=== PATIENT | female | born 1950 | race Caucasian/White ===

== ENCOUNTER → 2016-08-22 | Outpatient (CLI) | payer OTHER ==
--- NOTE | 2016-08-22 10:41 | US ---
EXAMINATION TYPE: US abdomen complete DATE OF EXAM: 08/22/2016 7:32 AM COMPARISON: NONE CLINICAL HISTORY: I71.4 Abdominal Aortic Aneurysm. Patient stated calcification was seen on chiroprac tic back X Ray; diabetic EXAM MEASUREMENTS: Liver Length: 13.4 cm Gallbladder Wall: 0.2 cm CBD: 0.2 cm Spleen: 10.3 cm Right Kidney: 10.7 x 5.2 x 5.0 cm Left Kidney: 10.4 x 6.2 x 5.0 cm Pancreas: wnl Liver: fatty Gallbladder: wnl Evidence for sonographic Styles's sign: No CBD: wnl Spleen: parallel wall calcification upper pole suggests vessel wall calcification Right Kidney: multiple shadowing renal stones with largest at mid lower pole = 2.2 x 1.7 x 0.8cm Left Kidney: parallel wall calcification noted mid pole Upper IVC: wnl Abd Aorta: intimal wall changes noted mid and lower aorta IMPRESSION: 1. Renal calcifications without evidence of hydronephrosis. 2. Nonspecific pattern to the liver can be seen with fatty infiltration. Correlate for hepatocellular disease or hepatitis.
== END | disposition home or self-care (01) ==
LOC: RADUSWWP 06:49
PROVIDERS: ATTEND Internal Medicine
DX: N28.89 Other specified disorders of kidney and ureter (principal)
CPT/HCPCS: 76700

== ENCOUNTER → 2017-05-03 | Outpatient (CLI) | payer MEDICARE, OTHER ==
--- NOTE | 2017-05-06 11:42 | MM ---
Reason for exam: screening (asymptomatic). Last mammogram was performed 1 year and 10 months ago. History: Patient is postmenopausal. Family history of breast cancer in sister at age 58. Took estrogen for 6 months. Physical Findings: A clinical breast exam by your physician is recommended on an annual basis and results should be correlated with mammographic findings. MG 3D Screening Mammo W/Cad Bilateral CC and MLO view(s) were taken. Prior study comparison: July 12, 2015, bilateral MG screening mammo w CAD. January 19, 2014, bilateral MG screening mammo w CAD. The breast tissue is heterogeneously dense. This may lower the sensitivity of mammography. There is no discrete abnormality. No significant changes when compared with prior studies. ASSESSMENT: Negative, BI-RAD 1 RECOMMENDATION: Routine screening mammogram of both breasts in 1 year.
== END | disposition home or self-care (01) ==
LOC: RADMAMWWP 12:46
PROVIDERS: ATTEND Internal Medicine
DX: Z12.31 Encounter for screening mammogram for malignant neoplasm of breast (principal)
CPT/HCPCS: 77063; 77067

== ENCOUNTER → 2017-05-10 | Outpatient (CLI) | payer MEDICARE, OTHER ==
--- NOTE | 2017-05-10 15:03 | US ---
EXAMINATION TYPE: US kidneys/renal and bladder DATE OF EXAM: 05/10/2017 COMPARISON: Complete Abdominal US report 08-22-2016. CLINICAL HISTORY: N20.0 Calculus Of Kidney. gross hematuria this week that has turned to microscopic hematuria EXAM MEASUREMENTS: Right Kidney: 11.4 x 5.0 x 6.2cm Left Kidney: 10.8 x 5.0 x 4.4cm Right Kidney: severe hydronephrosis with inferior stone seen = 1.6cm Left Kidney: wnl Bladder: wnl Bilateral Jets seen: left only There is no evidence for hydronephrosis at this point in time. No nephrolithiasis is seen. No gwen s are identified. The urinary bladder is anechoic. Bilateral ureteral jets are seen. IMPRESSION: Severe right-sided hydronephrosis is now present. Suspect obstructing ureter calculus. Urology referr al and further workup advised. Technologist suspects obstructing 1.6 cm proximal ureter calculus.
== END | disposition home or self-care (01) ==
LOC: RADUSWWP 13:26
PROVIDERS: ATTEND Internal Medicine
DX: N13.30 Unspecified hydronephrosis (principal)
CPT/HCPCS: 76770

== ENCOUNTER → 2017-05-17 | Outpatient (CLI) | payer MEDICARE, OTHER ==
[2017-05-17 15:25] LABS: Blood Urea Nitrogen 15 mg/dL (7-17)
--- NOTE | 2017-05-18 02:00 | CT ---
EXAMINATION TYPE: CT abdomen pelvis w con DATE OF EXAM: 05/17/2017 COMPARISON: NONE HISTORY: Right sided renal stone CT DLP: 1186 mGycm Automated exposure control for dose reduction was used. TECHNIQUE: Helical acquisition of images was performed from the lung bases through the pelvis. CONTRAST: Performed with Oral Contrast and with IV Contrast, patient injected with 100 mL of Omnipaque 300. FINDINGS: Lung bases are clear of consolidation. There is mild subsegmental atelectasis at the posterior lung b ases. There is no pleural effusion. There is coronary artery calcification. Liver and spleen appear normal. Bile ducts are not dilated. There is no pancreatic mass. Gallbladder appears normal. There are multiple calculi in the right kidney to measure up to 1.2 cm. There is moderate right-sided hydronephrosis and hydroureter. There appears to be at least 2 large calculi in the lower right uret er. The largest measures 9 mm. Bladder distends smoothly. There is no free fluid in the pelvis. There is no evidence of a pelvic mass. There is no ascites. I see no intestinal wall thickening. There are no dilated loops. There is probably a 3 mm nonobstructing calculus in the left kidney. There is a 1 semiarid cortical cyst on the lateral right kidney. There is no retroperitoneal adenopathy. Abdominal aorta is atheromatous. There is spondylosis in the lumbar spine with L4-5 disc space narrowing.. IMPRESSION: MODERATELY SEVERE RIGHT-SIDED HYDRONEPHROSIS AND HYDROURETER. MULTIPLE RIGHT RENAL CALCULI. LARGE OBS TRUCTING CALCULI IN THE LOWER RIGHT URETER. ATHEROSCLEROTIC VASCULAR DISEASE. NORMAL APPENDIX.
== END | disposition home or self-care (01) ==
LOC: RADCTMAIN 14:40
PROVIDERS: ATTEND Urology
DX: N13.2 Hydronephrosis with renal and ureteral calculous obstruction (principal); N13.4 Hydroureter
CPT/HCPCS: 82565; 84520; 74177; 36415; Q9967

== ENCOUNTER → 2017-05-22 | Outpatient (CLI) | payer MEDICARE, OTHER ==
--- NOTE | 2017-05-22 13:12 | XR ---
EXAMINATION TYPE: XR KUB DATE OF EXAM: 05/22/2017 12:44 PM CLINICAL HISTORY: Bilateral kidney stones. TECHNIQUE: Two supine KUB images of the abdomen are obtained. COMPARISON: CT abdomen and pelvis 5 days ago. FINDINGS: There are 6-8 right-sided renal calculi mid to lower pole level with dominant 2.2 cm calcul us redemonstrated. There is redemonstration of 2 obstructing distal right ureter calculi measuring 5 to 8 mm in the right upper to mid pelvis. There are 2 smaller calculi left kidney. There is vascular calcification left upper quadrant and left pelvis. There is overall nonobstructive bowel gas pattern. Visualized osseous structures are intact. IMPRESSION: Right greater than left nephrolithiasis with obstructing distal ureter calculi redemonstr ated.
== END | disposition home or self-care (01) ==
LOC: RADXRMAIN 12:32
PROVIDERS: ATTEND Internal Medicine
DX: N20.2 Calculus of kidney with calculus of ureter (principal)
CPT/HCPCS: 74018

== ENCOUNTER → 2017-05-27 | Outpatient (CLI) | payer MEDICARE, OTHER ==
[2017-05-27 12:30] LABS: Anion Gap 13 mmol/L; Blood Urea Nitrogen 14 mg/dL (7-17); Calcium 10.4 mg/dL (8.4-10.2); Carbon Dioxide 29 mmol/L (22-30); Chloride 97 mmol/L (98-107); Glucose 212 mg/dL (74-99); Potassium 4.6 mmol/L (3.5-5.1); Sodium 139 mmol/L (137-145)
[2017-05-27 13:08] LABS: Basophils # (A) 0.1 k/uL (0-0.2); Basophils % (A) 1 %; Eosinophils # (A) 0.5 k/uL (0-0.7); Eosinophils % (A) 6 %; HCT 40.4 % (34.0-46.0); HGB 12.8 gm/dL (11.4-16.0); Lymphocytes # (A) 3.3 k/uL (1.0-4.8); Lymphocytes % (A) 37 %; MCH 30.4 pg (25.0-35.0); MCHC 31.7 g/dL (31.0-37.0); MCV 95.8 fL (80.0-100.0); Monocytes # (A) 0.7 k/uL (0-1.0); Monocytes % (A) 8 %; Neutrophils # (A) 4.1 k/uL (1.3-7.7); Neutrophils % (A) 47 %; Platelet Count 416 k/uL (150-450); RBC 4.21 m/uL (3.80-5.40); RDW 12.4 % (11.5-15.5); WBC 8.9 k/uL (3.8-10.6)
== END | disposition home or self-care (01) ==
LOC: LABPAT 11:41
PROVIDERS: ATTEND Physician Assistant
DX: Z01.812 Encounter for preprocedural laboratory examination (principal); N20.1 Calculus of ureter; Z79.899 Other long term (current) drug therapy
CPT/HCPCS: 36415; 80048; 85025

== ENCOUNTER → 2017-07-08 | Outpatient (CLI) | payer MEDICARE, OTHER ==
--- NOTE | 2017-07-08 11:51 | US ---
EXAMINATION TYPE: US kidneys/renal and bladder DATE OF EXAM: 07/08/2017 COMPARISON: CT abdomen and pelvis May 17, 2017, US May 10, 2017 CLINICAL HISTORY: N13.30 Hydonephrosis. EXAM MEASUREMENTS: Right Kidney: 11.6 x 5.0 x 4.2 cm Left Kidney: 11.4 x 5.5 x 5.2 cm Right Kidney: mild hydro, multiple tiny echogenic foci, large shadowing stone seen measuring 0.8 x 0 .5 x 0.8cm, upper pole cyst measuring 1.6 x 1.1. x 1.1cm Left Kidney: scattered echogenic foci Bladder: wnl Bilateral Jets seen: Yes Initial images are presumed all mislabeled left. There is mild hydronephrosis significantly improved from prior CT and ultrasound. Technologists identified shadowing calculus lower pole level, there are multiple calculi seen at this level on recent CT. Technologist bergeron simple appearing 1.1 cm cyst up per pole level right kidney. No hydronephrosis is seen in the left kidney. 2-3 tiny calculi measuring up to 3 mm in the left kidne y on CT are less well-seen on ultrasound IMPRESSION: Persistent mild right-sided hydronephrosis with significant improvement from recent CT and ultrasound where there were several obstructing distal ureter calculi present.
== END | disposition home or self-care (01) ==
LOC: RADUSWWP 09:39
PROVIDERS: ATTEND Urology
DX: N13.2 Hydronephrosis with renal and ureteral calculous obstruction (principal)
CPT/HCPCS: 76770

== ENCOUNTER → 2017-09-02 | Outpatient (CLI) | payer MEDICARE, OTHER ==
--- NOTE | 2017-09-02 09:43 | XR ---
EXAMINATION TYPE: XR KUB DATE OF EXAM: 09/02/2017 HISTORY: Pain Comparison: 05/22/2017 Single KUB is submitted for interpretation. Findings: Right renal calculi: Residual staghorn like calculus lower pole right kidney persists and measures 2. 0 x 2.4 cm. Right ureteral calculi: Previously noted distal right ureteral calculi are no longer visible at this time. Left renal calculi: Stable 2.5 mm left renal calculus. Left ureteral calculi: None Visualized. Pelvic calcifications: Vascular calcifications are noted bilaterally within the pelvis. Bowel gas pattern is unremarkable. No free air. No mass effects. IMPRESSION: 1. Previously noted the distal right ureteral calculi are no longer visible at this time. 2. Remaining renal calculi bilaterally are essentially unchanged.
== END | disposition home or self-care (01) ==
LOC: RADXRMAIN 09:13
PROVIDERS: ATTEND Urology
DX: N20.0 Calculus of kidney (principal)
CPT/HCPCS: 74018

== ENCOUNTER → 2018-01-21 | Outpatient (CLI) | payer MEDICARE, OTHER ==
--- NOTE | 2018-01-22 14:40 | XR ---
Abdomen HISTORY: Right renal calculus Frontal view of the abdomen correlated to prior exam 09/02/2017 Multiple right-sided calcifications show a similar appearance to prior exam. Left-sided lower pole re nal calculus also shows a similar appearance. Lung bases not included on exam. There is retained feca l debris throughout the abdomen. Pelvic calcifications are stable. Degenerative disc changes in the v isualized spine. No pneumoperitoneum. IMPRESSION: Bilateral nephrolithiasis.
== END | disposition home or self-care (01) ==
LOC: RADXRMAIN 11:00
PROVIDERS: ATTEND Urology
DX: N20.0 Calculus of kidney (principal)
CPT/HCPCS: 74018

== ENCOUNTER → 2018-08-06 | Outpatient (CLI) | payer MEDICARE, OTHER ==
--- NOTE | 2018-08-06 13:49 | XR ---
EXAMINATION TYPE: XR KUB DATE OF EXAM: 08/06/2018 COMPARISON: 01/21/2018 INDICATION: Renal calculi TECHNIQUE: Single view abdomen supine view FINDINGS: There is a normal bowel gas pattern. Psoas margins are normal. No organomegaly is present. There is a large calcification over the inferior pole right kidney measuring 1.2 x 2.5 cm. Adjacent c alcification is present. Small calcifications present in the mid left renal region measuring approxim ately 0.3 cm in transverse dimension. IMPRESSION: 1. Large stable right inferior pole renal calculus
== END ==
LOC: RADXRMAIN 09:59
PROVIDERS: ATTEND Urology
DX: N20.0 Calculus of kidney (principal)
CPT/HCPCS: 74018

== ENCOUNTER → 2018-08-21 | Outpatient (CLI) | payer MEDICARE, OTHER ==
--- NOTE | 2018-08-21 10:43 | MM ---
Reason for exam: screening (asymptomatic). Last mammogram was performed 1 year and 4 months ago. History: Patient is postmenopausal. Family history of breast cancer in sister at age 58. Took estrogen for 6 months. Physical Findings: A clinical breast exam by your physician is recommended on an annual basis and results should be correlated with mammographic findings. MG 3D Screening Mammo W/Cad Bilateral CC and MLO view(s) were taken. Prior study comparison: May 03, 2017, bilateral MG 3d screening mammo w/cad. July 12, 2015, bilateral MG screening mammo w CAD. The breast tissue is heterogeneously dense. This may lower the sensitivity of mammography. There is no discrete abnormality. ASSESSMENT: Negative, BI-RAD 1 RECOMMENDATION: Routine screening mammogram of both breasts in 1 year.
== END | disposition home or self-care (01) ==
LOC: RADMAMWWP 09:49
PROVIDERS: ATTEND Internal Medicine
DX: Z12.31 Encounter for screening mammogram for malignant neoplasm of breast (principal)
CPT/HCPCS: 77063; 77067

== ENCOUNTER 2018-11-15 10:00 | Emergency (ER) | payer MEDICARE, OTHER ==
[2018-11-15 10:14] VITALS: TEMP 97.9
[2018-11-15] MEDS ORDERED: SODIUM CHLORIDE 0.9% 1,000 ML IV STA (10:16)
[2018-11-15] MEDS ORDERED: SODIUM CHLORIDE 0.9% 500 ML 500 ML IV ONE (10:37)
[2018-11-15] MEDS ORDERED: KETOROLAC 30 MG/ML 1 ML VIAL IVP STA (10:37)
[2018-11-15] MEDS ORDERED: SODIUM CHLORIDE 0.9% 1,000 ML IV ONE (10:37)
[2018-11-15] MEDS ORDERED: ONDANSETRON 4 MG/2 ML VIAL IVP STA (10:37)
--- NOTE | 2018-11-15 10:39 | ED ---
Abdominal Pain HPI - General Chief Complaint: Abdominal Pain Stated Complaint: lt sided pain Time Seen by Provider: 11/15/18 10:16 Source: patient, RN notes reviewed Mode of arrival: ambulatory Limitations: no limitations - History of Present Illness Initial Comments: This a 68-year-old female presents emergency Department chief complaint of left flank pain. Patient states his sudden onset of pain this morning. Patient states she was camping and portable and had a drive back. Patient states she stopped half way home to urinate states symptoms did improve after that. Patient states that she has known kidney stones but states that she's never pa ssed one. Patient states that she's had surgery on in the past. Patient does admit to nausea vomiting no diarrhea no constipation she does admit the pain, nausea has improved no chest pain or shortness of breath. Patient states nothing makes the pain feel better. - Related Data Home Medications Medication Instructions Recorded Confirmed Meloxicam [Mobic] 7.5 mg PO DAILY 02/08/14 11/15/18 Atorvastatin [Lipitor] 40 mg PO Q48H 02/15/14 11/15/18 sitaGLIPtin [Januvia] 100 mg PO DAILY 02/15/14 11/15/18 Aspirin [[place] Aspirin EC] 81 mg PO Q48H 11/15/18 11/15/18 Insulin Glargine [Lantus] 15 units SQ BID@0800,1600 11/15/18 11/15/18 Losartan [Cozaar] 25 mg PO DAILY 11/15/18 11/15/18 Multivitamin/Iron/Folic Acid 1 tab PO Q48H 11/15/18 11/15/18 [Centrum Women Tablet] Omeprazole [PriLOSEC] 20 mg PO Q48H 11/15/18 11/15/18 metFORMIN HCL [Glucophage Xr] 750 mg PO BID@1200,1600 11/15/18 11/15/18 Previous Rx's Medication Instructions Recorded Ketorolac [Toradol] 10 mg PO Q8HR #15 tab 11/15/18 Ondansetron Odt [Zofran Odt] 4 mg PO Q8HR PRN #10 tab 11/15/18 Allergies Allergy/AdvReac Type Severity Reaction Status Date / Time No Known Allergies Allergy Verified 11/15/18 10:39 Review of Systems ROS Statement: Those systems with pertinent positive or pertinent negative responses have been documented in the HPI. ROS Other: All systems not noted in ROS Statement are negative. Past Medical History Past Medical History: Diabetes Mellitus, Hyperlipidemia, Osteoarthritis (OA) History of Any Multi-Drug Resistant Organisms: None Reported Past Surgical History: Section, Orthopedic Surgery Additional Past Surgical History / Comment(s): X3, RT KNEE MENISCUS, REPAIR LEFT ANKLE FX. Past Anesthesia/Blood Transfusion Reactions: Motion Sickness, Postoperative Nausea & Vomiting (PONV) Past Psychological History: No Psychological Hx Reported Smoking Status: Former smoker Past Alcohol Use History: Occasional Past Drug Use History: None Reported - Past Family History Mother Family Medical History: Cancer Additional Family Medical History / Comment(s): SKIN Sister(s) Family Medical History: Cancer Additional Family Medical History / Comment(s): BREAST CA Brother(s) Family Medical History: Cancer Additional Family Medical History / Comment(s): RECTAL CA General Exam Limitations: no limitations General appearance: alert, in no apparent distress Head exam: Present: atraumatic, normocephalic, normal inspection Eye exam: Present: normal appearance, PERRL, EOMI. Absent: scleral icterus, conjunctival injection, periorbital swelling Respiratory exam: Present: normal lung sounds bilaterally. Absent: respiratory distress, wheezes, rales, rhonchi, stridor Cardiovascular Exam: Present: regular rate, normal rhythm, normal heart sounds. Absent: systolic murmur, diastolic murmur, rubs, gallop, clicks GI/Abdominal exam: Present: soft, tenderness (Essentially no tenderness to left side), normal bowel sounds. Absent: distended, guarding, rebound, rigid Back exam: Absent: CVA tenderness (R), CVA tenderness (L) Skin exam: Present: warm, dry, intact, normal color. Absent: rash Course Vital Signs 11/15/18 10:13 Temperature 97.9 F Pulse Rate 103 H Respiratory 18 Rate Blood Pressure 134/68 O2 Sat by Pulse 99 Oximetry Medical Decision Making - Medical Decision Making 68-year-old female presented for left flank pain. Patient has known history of stones. Patient's urinalysis reveals hematuria and pain is consistent with kidney stone. Patient's pain is improved at this time patient discharged with Toradol, codeine, Zofran. Patient will follow-up with her urologist and return parameters were discussed. - Lab Data Result diagrams: 11/15/18 11:13 11/15/18 11:13 Lab Results 11/15/18 11/15/18 11/15/18 Range/Units 11:13 11:13 11:13 WBC 8.8 (3.8-10.6) k/uL RBC 4.02 (3.80-5.40) m/uL Hgb 11.6 (11.4-16.0) gm/dL Hct 36.7 (34.0-46.0) % MCV 91.4 (80.0-100.0) fL MCH 28.8 (25.0-35.0) pg MCHC 31.5 (31.0-37.0) g/dL RDW 13.5 (11.5-15.5) % Plt Count 320 (150-450) k/uL Neutrophils % 83 % Lymphocytes % 11 % Monocytes % 4 % Eosinophils % 1 % Basophils % 0 % Neutrophils # 7.3 (1.3-7.7) k/uL Lymphocytes # 0.9 L (1.0-4.8) k/uL Monocytes # 0.3 (0-1.0) k/uL Eosinophils # 0.1 (0-0.7) k/uL Basophils # 0.0 (0-0.2) k/uL Sodium 138 (137-145) mmol/L Potassium 5.2 H (3.5-5.1) mmol/L Chloride 102 (98-107) mmol/L Carbon Dioxide 25 (22-30) mmol/L Anion Gap 11 mmol/L BUN 17 (7-17) mg/dL Creatinine 0.96 (0.52-1.04) mg/dL Est GFR (CKD-EPI)AfAm 71 (>60 ml/min/1.73 sqM) Est GFR (CKD-EPI)NonAf 62 (>60 ml/min/1.73 sqM) Glucose 220 H (74-99) mg/dL Plasma Lactic Acid Vinod (0.7-2.0) mmol/L Calcium 10.1 (8.4-10.2) mg/dL Total Bilirubin 0.5 (0.2-1.3) mg/dL AST 24 (14-36) U/L ALT 27 (9-52) U/L Alkaline Phosphatase 128 H (38-126) U/L Total Protein 7.0 (6.3-8.2) g/dL Albumin 4.2 (3.5-5.0) g/dL Amylase 82 (30-110) U/L Lipase 219 (23-300) U/L Urine Color Light Yellow Urine Appearance Clear (Clear) Urine pH 5.5 (5.0-8.0) Ur Specific Vickery 1.009 (1.001-1.035) Urine Protein Negative (Negative) Urine Glucose (UA) 4+ H (Negative) Urine Ketones 1+ H (Negative) Urine Blood Moderate H (Negative) Urine Nitrite Negative (Negative) Urine Bilirubin Negative (Negative) Urine Urobilinogen <2.0 (<2.0) mg/dL Ur Leukocyte Esterase Negative (Negative) Urine RBC 35 H (0-5) /hpf Urine WBC <1 (0-5) /hpf 11/15/18 Range/Units 11:13 WBC (3.8-10.6) k/uL RBC (3.80-5.40) m/uL Hgb (11.4-16.0) gm/dL Hct (34.0-46.0) % MCV (80.0-100.0) fL MCH (25.0-35.0) pg MCHC (31.0-37.0) g/dL RDW (11.5-15.5) % Plt Count (150-450) k/uL Neutrophils % % Lymphocytes % % Monocytes % % Eosinophils % % Basophils % % Neutrophils # (1.3-7.7) k/uL Lymphocytes # (1.0-4.8) k/uL Monocytes # (0-1.0) k/uL Eosinophils # (0-0.7) k/uL Basophils # (0-0.2) k/uL Sodium (137-145) mmol/L Potassium (3.5-5.1) mmol/L Chloride (98-107) mmol/L Carbon Dioxide (22-30) mmol/L Anion Gap mmol/L BUN (7-17) mg/dL Creatinine (0.52-1.04) mg/dL Est GFR (CKD-EPI)AfAm (>60 ml/min/1.73 sqM) Est GFR (CKD-EPI)NonAf (>60 ml/min/1.73 sqM) Glucose (74-99) mg/dL Plasma Lactic Acid Vinod 0.9 (0.7-2.0) mmol/L Calcium (8.4-10.2) mg/dL Total Bilirubin (0.2-1.3) mg/dL AST (14-36) U/L ALT (9-52) U/L Alkaline Phosphatase (38-126) U/L Total Protein (6.3-8.2) g/dL Albumin (3.5-5.0) g/dL Amylase (30-110) U/L Lipase (23-300) U/L Urine Color Urine Appearance (Clear) Urine pH (5.0-8.0) Ur Specific Vickery (1.001-1.035) Urine Protein (Negative) Urine Glucose (UA) (Negative) Urine Ketones (Negative) Urine Blood (Negative) Urine Nitrite (Negative) Urine Bilirubin (Negative) Urine Urobilinogen (<2.0) mg/dL Ur Leukocyte Esterase (Negative) Urine RBC (0-5) /hpf Urine WBC (0-5) /hpf Disposition Clinical Impression: Kidney stone Disposition: HOME SELF-CARE Condition: Stable Instructions (If sedation given, give patient instructions): Kidney Stones (ED) Additional Instructions: Please return to the Emergency Department if symptoms worsen or any other concerns. Prescriptions: Ketorolac [Toradol] 10 mg PO Q8HR #15 tab Ondansetron Odt [Zofran Odt] 4 mg PO Q8HR PRN #10 tab PRN Reason: Nausea Is patient prescribed a controlled substance at d/c from ED?: No Referrals: Denice Matthews MD [Primary Care Provider] - 1-2 days Time of Disposition: 12:39
[2018-11-15 11:39] LABS: Basophils % (A) 0 %; Eosinophils # (A) 0.1 k/uL (0-0.7); Eosinophils % (A) 1 %; HCT 36.7 % (34.0-46.0); HGB 11.6 gm/dL (11.4-16.0); Lymphocytes # (A) 0.9 k/uL (1.0-4.8); Lymphocytes % (A) 11 %; MCH 28.8 pg (25.0-35.0); MCHC 31.5 g/dL (31.0-37.0); MCV 91.4 fL (80.0-100.0); Mean Platelet Volume 6.9; Monocytes # (A) 0.3 k/uL (0-1.0); Monocytes % (A) 4 %; Neutrophils # (A) 7.3 k/uL (1.3-7.7); Neutrophils % (A) 83 %; Platelet Count 320 k/uL (150-450); RBC 4.02 m/uL (3.80-5.40); RDW 13.5 % (11.5-15.5); WBC 8.8 k/uL (3.8-10.6)
[2018-11-15 11:50] LABS: Albumin 4.2 g/dL (3.5-5.0); Total Bilirubin 0.5 mg/dL (0.2-1.3)
[2018-11-15 12:01] LABS: Calcium 10.1 mg/dL (8.4-10.2); Potassium 5.2 mmol/L (3.5-5.1)
--- NOTE | 2018-11-15 12:15 | XR ---
EXAMINATION TYPE: XR KUB , 2 VIEWS DATE OF EXAM ORDERED: 11/15/2018 HISTORY: abdominal pain. COMPARISON: Previous study dated 08/06/2018. FINDINGS: The lung bases are clear. Within the abdomen, the abdominal gas pattern is normal. 2 calculi on the right, believed to be in th e right ureter unchanged in size or appearance from the previous examination. Tiny calculi overlying the upper pole of the left kidney change. Somewhat. These may not relate to the kidney. IMPRESSION: 1. STABLE RIGHT RENAL CALCULI. 2. QUESTIONABLE LEFT UPPER POLE RENAL CALCULI.
[2018-11-15 12:17] LABS: Appearance,Urine Clear (Clear); Bilirubin,Urine Negative (Negative); Blood,Urine Moderate (Negative); Color,Urine Light Yellow; Glucose,Urine (UA) 4+ (Negative); Ketones,Urine 1+ (Negative); Leukocyte Esterase,Urine Negative (Negative); Nitrite,Urine Negative (Negative); PH, Urine 5.5 (5.0-8.0); Protein,Urine Negative (Negative); RBC,Urine 35 /hpf (0-5); Specific Gravity,Urine 1.009 (1.001-1.035); Urobilinogen,Urine <2.0 mg/dL (<2.0)
[2018-11-15] MEDS ORDERED: ACET/COD 300 MG/30 MG STARTER PACK 6 TAB BTL PO STA (12:39)
[2018-11-15 12:51] VITALS: BP 133/61; PULSE 93; RESP 16
== END 2018-11-15 13:12 | disposition home or self-care (01) ==
LOC: EC 10:00
DX: N20.0 Calculus of kidney (principal); E11.9 Type 2 diabetes mellitus without complications; E78.5 Hyperlipidemia, unspecified; M19.90 Unspecified osteoarthritis, unspecified site; Z79.1 Long term (current) use of non-steroidal anti-inflammatories (NSAID); Z79.4 Long term (current) use of insulin; Z79.82 Long term (current) use of aspirin; Z79.899 Other long term (current) drug therapy; Z87.891 Personal history of nicotine dependence
CPT/HCPCS: 36415; 80053; 82150; 83605; 83690; 85025; 81001; 74018; 96374; 96375; 96361; 99284; J2405; J1885

== ENCOUNTER → 2019-10-27 | Outpatient (CLI) | payer MEDICARE, OTHER ==
--- NOTE | 2019-10-27 17:19 | XR ---
KUB HISTORY: Kidney stone Frontal KUB correlated prior exam 11/15/2018 Calcification superimposed over the lower pole the right kidney are again noted and show similar appe arance. Calcifications in the pelvis are again seen and are stable. There is no evident bowel obstruc tion or pneumoperitoneum. Degenerative disc changes are present at the lumbosacral junction, there is mild spinal curvature. IMPRESSION: Stable right-sided nephrolithiasis.
== END | disposition home or self-care (01) ==
LOC: RADXRMAIN 11:37
PROVIDERS: ATTEND Urology
DX: N20.0 Calculus of kidney (principal)
CPT/HCPCS: 74018

== ENCOUNTER → 2020-05-17 | Outpatient (CLI) | payer MEDICARE, OTHER ==
--- NOTE | 2020-05-18 10:37 | MM ---
Reason for exam: screening (asymptomatic). Last mammogram was performed 1 year and 9 months ago. History: Patient is postmenopausal. Family history of breast cancer in sister at age 58. Took estrogen for 6 months. Physical Findings: A clinical breast exam by your physician is recommended on an annual basis and results should be correlated with mammographic findings. MG 3D Screening Mammo W/Cad Bilateral CC and MLO view(s) were taken. Prior study comparison: August 21, 2018, bilateral MG 3d screening mammo w/cad. May 03, 2017, bilateral MG 3d screening mammo w/cad. The breast tissue is heterogeneously dense. This may lower the sensitivity of mammography. There is no discrete abnormality. No significant changes when compared with prior studies. ASSESSMENT: Negative, BI-RAD 1 RECOMMENDATION: Routine screening mammogram of both breasts in 1 year.
== END | disposition home or self-care (01) ==
LOC: RADMAMWWP 13:18
PROVIDERS: ATTEND Internal Medicine
DX: Z12.31 Encounter for screening mammogram for malignant neoplasm of breast (principal)
CPT/HCPCS: 77063; 77067

== ENCOUNTER → 2020-10-20 | Outpatient (CLI) | payer MEDICARE, OTHER | END | disposition home or self-care (01) | DX: N20.0 Calculus of kidney (principal) ==

== ENCOUNTER → 2021-08-15 | Outpatient (CLI) | payer MEDICARE, OTHER ==
--- NOTE | 2021-08-16 11:07 | MM ---
Reason for exam: screening (asymptomatic). Last mammogram was performed 1 year and 3 months ago. History: Patient is postmenopausal. Family history of breast cancer in sister at age 58. Took estrogen for 6 months. Physical Findings: A clinical breast exam by your physician is recommended on an annual basis and results should be correlated with mammographic findings. MG 3D Screening Mammo W/Cad Bilateral CC and MLO view(s) were taken. Prior study comparison: May 17, 2020, bilateral MG 3d screening mammo w/cad. August 21, 2018, bilateral MG 3d screening mammo w/cad. The breast tissue is heterogeneously dense. This may lower the sensitivity of mammography. There is no discrete abnormality. No significant changes when compared with prior studies. ASSESSMENT: Negative, BI-RAD 1 RECOMMENDATION: Routine screening mammogram of both breasts in 1 year.
== END | disposition home or self-care (01) ==
LOC: RADMAMWWP 11:10
PROVIDERS: ATTEND Internal Medicine
DX: Z12.31 Encounter for screening mammogram for malignant neoplasm of breast (principal); Z78.0 Asymptomatic menopausal state; Z80.3 Family history of malignant neoplasm of breast
CPT/HCPCS: 77063; 77067

== ENCOUNTER → 2021-09-19 | Outpatient (CLI) | payer MEDICARE, OTHER ==
--- NOTE | 2021-09-19 12:15 | XR ---
EXAMINATION TYPE: XR KUB DATE OF EXAM: 09/19/2021 COMPARISON: X-ray dated 10/20/2020 INDICATION: Right renal stone TECHNIQUE: Single AP view of the abdomen FINDINGS: At least 3 right lower pole renal calculi, appreciated previously and grossly stable. The largest oscar sures up to 2.2 cm. The other 2 calculi measures 1.3 and 1.2 cm respectively. Questionable tiny left renal calculi, obscured by the overlying colonic fecal material. Significant f ecal loading of the colon. Arterial atherosclerotic calcifications. Degenerative changes of the lumba r spine. IMPRESSION: Right renal calculi as described above, grossly stable.
== END | disposition home or self-care (01) ==
LOC: RADXRMAIN 08:19
PROVIDERS: ATTEND Urology
DX: N20.0 Calculus of kidney (principal)
CPT/HCPCS: 74018

== ENCOUNTER → 2021-09-27 | Outpatient (CLI) | payer MEDICARE, OTHER ==
--- NOTE | 2021-09-27 20:44 | BD ---
EXAMINATION TYPE: Axial Bone Density DATE OF EXAM: 09/27/2021 COMPARISON: FIRST DEXA AT [facility] CLINICAL HISTORY: 71 years year old Female. ICD-10 CODE: M85.89 DISRD OF BONE DENSITY AND STRUCTURE, MULTIP Height: 63.5IN Weight: 136 FRAX RISK QUESTIONS: Family History (Parent hip fracture): YES History of Fracture in Adulthood: YES Secondary Osteoporosis: YES 1. Type 1 Diabetes: YES 3. Menopause before 45: YES RISK FACTORS HISTORY OF: HX OF LT SHOULDER, LT ANKLE FX ADULT History of Wrist Fracture: LEFT Diet low in dairy products/other sources of calcium: YES Postmenopausal woman: 47 Take estrogen and/or progesterone medications: YES IN PAST FOR 6 WEEKS MEDICATIONS: Additional Medications: METFORMIN, INSULIN MED, CHOLESTEROL MED, REFLUX MED, MULTIVITAMIN Additional History: EXAM MEASUREMENTS: Bone mineral densitometry was performed using the ngmoco System. Bone mineral density as measured about the Lumbar spine is: ----- L1-L4(G/cm2): 1.385 T Score Values are as follows: ----- L1: -0.4 ----- L2: 0.9 ----- L3: 1.5 ----- L4: 4.7 ----- L1-L4: 1.7 NEW Bone mineral density about the R hip (g/cm2): 0.755 Bone mineral density about the L hip (g/cm2): 0.781 T Score values are as follows: -----R Neck: -2.1 -----L Neck: -2.0 -----R Total: -2.0 -----L Total: -1.8 NEW FRAX%s: The graph provided illustrates a 29.6% chance for a major osteoporotic fx and a 7.5% chance f or the hips probability for fx in 10 years time. IMPRESSION: Osteopenia (T Score between -2.5 and -1). There is slightly increased risk of fracture and the patient may be considered for treatment. Re-Screen 2-5 years. NOTE: T-SCORE=SD OF THE YOUNG ADULT MEAN.
== END | disposition home or self-care (01) ==
LOC: RADBDWWP 12:33
PROVIDERS: ATTEND Internal Medicine
DX: M85.89 Other specified disorders of bone density and structure, multiple sites (principal)
CPT/HCPCS: 77080

== ENCOUNTER → 2022-04-24 | Outpatient (CLI) | payer MEDICARE, OTHER | END | disposition home or self-care (01) | LOC: LABWHC1 16:16 | PROVIDERS: ATTEND Internal Medicine | DX: E87.5 Hyperkalemia (principal) | CPT/HCPCS: 36415; 84132 ==

== ENCOUNTER → 2022-09-13 | Outpatient (CLI) | payer OTHER ==
--- NOTE | 2022-09-14 08:28 | MM ---
Reason for Exam: Screening (asymptomatic). Last mammogram was performed 1 year(s) and 1 month(s) ago. Patient History: Menarche at age 13. First Full-Term at age 25. Postmenopausal. Estrogen for 6 months. Sister had breast cancer, age 58. Risk Values: Hannah 5 year model risk: 3.6%. NCI Lifetime model risk: 10.4%. Prior Study Comparison: 08/21/2018 Bilateral Screening Mammogram, [facility]. 05/17/2020 Bilateral Screening Mammogram, [facility]. 08/15/2021 Bilateral Screening Mammogram, [facility]. Tissue Density: There are scattered fibroglandular densities. Findings: Analyzed By CAD. There is no suspicious group of microcalcifications or new suspicious mass in either breast. Overall Assessment: Negative, BI-RAD 1 Management: Screening Mammogram of both breasts in 1 year. . Patient should continue monthly self-breast exams. A clinical breast exam by your physician is recommended on an annual basis. This exam should not preclude additional follow-up of suspicious palpable abnormalities. Note on Hannah scores and lifetime risk: 1. A Hannah score greater than 3% is considered moderate risk. If this is the case, consider specialist referral to assess eligibility for a risk reducing agent. 2. If overall lifetime risk for the development of breast cancer is 20% or higher, the patient may qualify for future screening with alternating mammogram and breast MRI. Electronically signed and approved by: Lakhwinder Brock M.D. Radiologis
== END | disposition home or self-care (01) ==
LOC: RADMAMWWP 08:23
PROVIDERS: ATTEND Internal Medicine
DX: Z12.31 Encounter for screening mammogram for malignant neoplasm of breast (principal); Z78.0 Asymptomatic menopausal state; Z80.3 Family history of malignant neoplasm of breast
CPT/HCPCS: 77063; 77067

== ENCOUNTER → 2022-09-18 | Outpatient (CLI) | payer OTHER, MEDICARE ==
--- NOTE | 2022-09-18 08:52 | XR ---
EXAMINATION TYPE: XR KUB DATE OF EXAM: 09/18/2022 HISTORY: Pain Comparison: 09/19/2021 Single KUB is submitted for interpretation. Findings: Right renal calculi: Multiple calculi redemonstrated overlying the mid to lower pole right kidney. Do minant calculus measures approximately 1.9 cm versus 2.2 cm previously. Adjacent 8 mm calculus is not ed as well as several smaller calculi. Right ureteral calculi: None Visualized. Left renal calculi: None Visualized. Left ureteral calculi: None Visualized. Pelvic calcifications: Stable which may reflect phlebolith formation as well as vascular calcificati ons. Bowel gas pattern is unremarkable. No free air. No mass effects. IMPRESSION: 1. Right-sided nephrolithiasis.
== END | disposition home or self-care (01) ==
LOC: RADXRMAIN 08:23
PROVIDERS: ATTEND Urology
DX: N20.0 Calculus of kidney (principal)
CPT/HCPCS: 74018

== ENCOUNTER → 2023-09-26 | Outpatient (CLI) | payer MEDICARE ==
--- NOTE | 2023-09-26 10:57 | XR ---
EXAMINATION TYPE: XR KUB DATE OF EXAM: 09/26/2023 Comparison: 09/18/2022 Clinical History: 73-year-old female N20.0 CALCULUS OF KIDNEY Findings: Right renal stones redemonstrated measuring up to 2.5 cm and 1.1 cm, not significantly changed. Vas d eferens calcifications in the pelvis as well as vascular calcifications at the inguinal regions and u pper thighs. Electronic device projecting at the left lower quadrant. Moderate stool burden. Nonobstr uctive bowel gas pattern. Impression: Stable right-sided renal stones measuring up to 2.5 cm. Moderate stool burden.
== END | disposition home or self-care (01) ==
LOC: RADXRMAIN 10:41
PROVIDERS: ATTEND Urology
DX: N20.0 Calculus of kidney (principal)
CPT/HCPCS: 74018

== ENCOUNTER → 2024-02-26 | Outpatient (CLI) | payer MEDICARE ==
--- NOTE | 2024-03-01 17:03 | MM ---
Reason for Exam: Screening (asymptomatic). Last mammogram was performed 1 year(s) and 5 month(s) ago. Patient History: Menarche at age 13. First Full-Term at age 25. Postmenopausal. Estrogen for 6 months. Sister had breast cancer, age 58. Risk Values: Hannah 5 year model risk: 3.7%. NCI Lifetime model risk: 9.4%. Prior Study Comparison: 07/12/2015 Bilateral Screening Mammogram, [facility]. 05/03/2017 Bilateral Screening Mammogram, [facility]. 08/21/2018 Bilateral Screening Mammogram, [facility]. 05/17/2020 Bilateral Screening Mammogram, [facility]. 08/15/2021 Bilateral Screening Mammogram, [facility]. 09/13/2022 Bilateral MG 3D screening mammo w/cad, [facility]. Tissue Density: The breasts are heterogeneously dense, which may obscure small masses. Findings: Analyzed By CAD. The pattern is symmetrical. There are some punctate calcifications best visualized on mediolateral view right breast. Additional workup recommended Left breast:No suspicious groups of microcalcifications, spiculated or lobular masses, architectural distortion or other secondary signs of malignancy are mammographically apparent. Overall Assessment: Incomplete: need additional imaging evaluation, BI-RAD 0 Management: Diagnostic Mammogram of the right breast. A negative mammogram report should not preclude additional follow up of suspicious palpable abnormalities. Patient should continue monthly self breast exam. A clinical breast exam by your physician is recommended on an annual basis and results should be correlated with mammographic findings. Note on Hannah scores and lifetime risk: 1. A Hannah score greater than 3% is considered moderate risk. If this is the case, consider specialist referral to assess eligibility for a risk reducing agent. 2. If overall lifetime risk for the development of breast cancer is 20% or higher, the patient may qualify for future screening with alternating mammogram and breast MRI. [facility], , 03/01/2024 5:00 PM. Electronically signed and approved by: Reno Mayo D.O. Radiologis
== END | disposition home or self-care (01) ==
LOC: RADMAMWWP 10:32
PROVIDERS: ATTEND Internal Medicine
DX: Z12.31 Encounter for screening mammogram for malignant neoplasm of breast (principal); R92.333 Mammographic heterogeneous density, bilateral breasts; Z78.0 Asymptomatic menopausal state; Z80.3 Family history of malignant neoplasm of breast
CPT/HCPCS: 77063; 77067

== ENCOUNTER → 2024-03-03 | Outpatient (CLI) | payer MEDICARE ==
--- NOTE | 2024-03-03 10:33 | MM ---
Reason for Exam: Additional evaluation requested from abnormal screening. Last screening mammogram was performed less than 1 month ago. Patient History: Menarche at age 13. First Full-Term at age 25. Postmenopausal. Estrogen for 6 months. Sister had breast cancer, age 58. Risk Values: Hannah 5 year model risk: 3.7%. NCI Lifetime model risk: 9.4%. Prior Study Comparison: 07/29/1998 Screening Mammogram, Unknown. 08/12/2008 Bilateral Screening Mammogram, [facility]. 08/17/2009 Bilateral Diagnostic Mammogram, [facility]. 02/09/2011 Bilateral Screening Mammogram, [facility]. 02/20/2011 Right Diagnostic Mammogram, [facility]. 10/07/2012 Bilateral Screening Mammogram, [facility]. 01/19/2014 Bilateral Screening Mammogram, [facility]. 07/12/2015 Bilateral Screening Mammogram, [facility]. 05/03/2017 Bilateral Screening Mammogram, [facility]. 08/21/2018 Bilateral Screening Mammogram, [facility]. 05/17/2020 Bilateral Screening Mammogram, [facility]. 08/15/2021 Bilateral Screening Mammogram, [facility]. 09/13/2022 Bilateral MG 3D screening mammo w/cad, [facility]. 02/26/2024 Bilateral MG 3D screening mammo w/cad, [facility]. Tissue Density: Right: The breasts are heterogeneously dense, which may obscure small masses. Findings: Analyzed By CAD. Indeterminate microcalcifications upper outer right breast approximately 7.5 cm from the nipple. Stereotactic core biopsy is recommended. Overall Assessment: Suspicious, BI-RAD 4 Management: Stereotactic Core Biopsy of the right breast. . Results were given to the patient verbally at the time of exam. Patient should continue monthly self-breast exams. A clinical breast exam by your physician is recommended on an annual basis. This exam should not preclude additional follow-up of suspicious palpable abnormalities. Note on Hannah scores and lifetime risk: 1. A Hannah score greater than 3% is considered moderate risk. If this is the case, consider specialist referral to assess eligibility for a risk reducing agent. 2. If overall lifetime risk for the development of breast cancer is 20% or higher, the patient may qualify for future screening with alternating mammogram and breast MRI. [facility], , 03/03/2024 10:30 AM. Electronically signed and approved by: Lakhwinder Brock M.D. Radiologis
== END | disposition home or self-care (01) ==
LOC: RADMAMWWP 10:04
PROVIDERS: ATTEND Internal Medicine
DX: R92.8 Other abnormal and inconclusive findings on diagnostic imaging of breast (principal); R92.333 Mammographic heterogeneous density, bilateral breasts; Z78.0 Asymptomatic menopausal state; Z80.3 Family history of malignant neoplasm of breast
CPT/HCPCS: 77065; G0279; 77061

== ENCOUNTER → 2024-03-09 | Day surgery (SDC) | payer MEDICARE ==
[~2024-03-09] MED LIST: ALPRAZolam 0.25 MG TAB PO PRN
[2024-03-09 10:14] VITALS: RESP 16; TEMP 98.1
[2024-03-09 11:30] VITALS: BP 120/73; PULSE 99
--- NOTE | 2024-03-16 13:54 | MM ---
Risk Values: Hannah 5 year model risk: 3.7%. NCI Lifetime model risk: 9.4%. Prior Study Comparison: 09/13/2022 Bilateral MG 3D screening mammo w/cad, [facility]. 02/26/2024 Bilateral MG 3D screening mammo w/cad, [facility]. 03/03/2024 Right MG 3D work up w/cad RT, [facility]. Pathology Description: Marker Left Behind. Specimen Radiograph. Calcium Found: Yes Approach: Lateral to Medial Needle Type: Eviva Cores: 11 Skin Nicks: 1 Gauge: 9 The small group of microcalcifications posterior upper outer quadrant right breast are targeted for biopsy via lateral approach. The procedure of stereotactic guided core biopsy was explained to the patient. Benefits, alternatives, and risks were discussed. An informed consent was then obtained. The [facility] pathway for biopsy was chosen. Shortness pathway was a lateral approach. A vacuum assisted biopsy gun was used to obtain multiple core samples. The patient tolerated the procedure well without any immediate complication. The patient was kept in the radiology department for short stay after the procedure and then discharged home in stable condition. Targeted calcifications are identified in specimen mammogram. Post biopsy mammogram shows the clip to appear in satisfactory position relative to the targeted area of concern on the preprocedure images. Impression: SUCCESSFUL, UNCOMPLICATED STEREOTACTIC GUIDED CORE BIOPSY OF POSTERIOR UPPER OUTER QUADRANT RIGHT BREAST MICROCALCIFICATIONS. Pathology Results: Result: Benign, Fibrocystic change. Pathology and radiology were reviewed. Findings are concordant. RIGHT BREAST, STEREOTACTIC CORE BIOPSY: Fibrocystic change with apocrine metaplasia, focal microcalcification and fibroadenomatoid hyperplasia. Overall Assessment: Benign Management: Diagnostic Mammogram of the right breast in 6 months. Electronically signed and approved by: Noel Weaver M.D. Radiologist
== END ==
LOC: RADMAMWWP 10:00
PROVIDERS: ATTEND Internal Medicine
DX: N60.81 Other benign mammary dysplasias of right breast (principal); R92.8 Other abnormal and inconclusive findings on diagnostic imaging of breast; R92.0 Mammographic microcalcification found on diagnostic imaging of breast
CPT/HCPCS: 88305; 19081; A4648; J2003

== ENCOUNTER → 2024-10-23 | Outpatient (CLI) | payer MEDICARE ==
--- NOTE | 2024-10-23 13:56 | BD ---
EXAMINATION TYPE: Axial Bone Density DATE OF EXAM: 10/23/2024 CLINICAL HISTORY: 74 years old Female. ICD-10 CODE: N958 BRUNO AND POSTMENO DISORDERS , Additional Hi story: Height: 63 in Weight: 129 lbs FRAX RISK QUESTIONS: Family History (Parent hip fracture): yes mother History of Fracture in Adulthood: lt ankle fx age 25, lt shoulder and lt wrist age 64, Secondary Osteoporosis: 1. Type 1 Diabetes: not sure 3. Menopause before 45: age 44 HISTORY OF: History of Wrist Fracture: lt wrist age 66 MEDICATIONS: Osteoporosis Medications: Which medication: Actonel How Long: took for a couple months. does not take now EXAM MEASUREMENTS: Bone mineral densitometry was performed using the [employer]etrO[employer] System. Bone mineral density as measured about the Lumbar spine is: ----- L1-L4(G/cm2): T Score Values are as follows: ----- L1: ----- L2: ----- L3: ----- L4: ----- L1-L4: Z Score Values are as follows: ----- L1: ----- L2: ----- L3: ----- L4: ----- L1-L4: Bone mineral density has: % since study of: Bone mineral density about the R hip (g/cm2): Bone mineral density about the L hip (g/cm2): T Score values are as follows: -----R Neck: -----L Neck: -----R Total: -----L Total: Z Score values are as follows: -----R Neck: -----L Neck: -----R Total: -----L Total: Bone mineral density has: % since study of: Bone mineral density about the R Wrist (g/cm2): Bone mineral density about the L Wrist (g/cm2): T Score values are as follows: -----Dist. R+U: -----Prox. R+U: -----Radius total: Z Score values are as follows: -----Dist. R+U: -----Prox. R+U: -----Radius total: Bone mineral density has: % since study of: FRAX%s: The graph provided illustrates a % chance for a major osteoporotic fx and a % chance for the hips probability for fx in 10 years time. IMPRESSION: Osteopenia (T Score between -2.5 and -1). There is slightly increased risk of fracture and the patient may be considered for treatment. Re-Screen 2-5 years. NOTE: T-SCORE=SD OF THE YOUNG ADULT MEAN. [facility], , 10/23/2024 1:54 PM
--- NOTE | 2024-10-23 15:09 | MM ---
Reason for Exam: Follow-up at short interval from prior study. Last screening mammogram was performed 8 month(s) ago. Patient History: Menarche at age 13. First Full-Term at age 25. Postmenopausal. Estrogen for 6 months. 03/09/2024, Benign MG stereo VAD BX RT on the right side. Sister had breast cancer, age 58. Risk Values: Hannah 5 year model risk: 4.3%. NCI Lifetime model risk: 11.0%. Prior Study Comparison: 09/13/2022 Bilateral MG 3D screening mammo w/cad, [facility]. 02/26/2024 Bilateral MG 3D screening mammo w/cad, [facility]. 03/03/2024 Right MG 3D work up w/cad RT, [facility]. Tissue Density: Right: The breasts are heterogeneously dense, which may obscure small masses. Findings: Analyzed By CAD. Mammotome biopsy clip in the right breast with some residual calcifications is now present. No new suspicious mass or worrisome group of microcalcifications. Overall Assessment: Benign, BI-RAD 2 Management: Screening Mammogram of both breasts in 6 months. Return to routine follow-up. Results were given to the patient verbally at the time of exam. Patient should continue monthly self-breast exams. A clinical breast exam by your physician is recommended on an annual basis. This exam should not preclude additional follow-up of suspicious palpable abnormalities. Note on Hannah scores and lifetime risk: 1. A Hannah score greater than 3% is considered moderate risk. If this is the case, consider specialist referral to assess eligibility for a risk reducing agent. 2. If overall lifetime risk for the development of breast cancer is 20% or higher, the patient may qualify for future screening with alternating mammogram and breast MRI. [facility], , 10/23/2024 3:06 PM. Electronically signed and approved by: Jose Luis Gallardo M.D.
== END | disposition home or self-care (01) ==
LOC: RADMAMWWP 12:45
PROVIDERS: ATTEND Internal Medicine
DX: R92.331 Mammographic heterogeneous density, right breast (principal); M85.89 Other specified disorders of bone density and structure, multiple sites; Z78.0 Asymptomatic menopausal state; Z80.3 Family history of malignant neoplasm of breast
CPT/HCPCS: 77061; 77065; 77080

== ENCOUNTER → 2024-11-04 | Outpatient (CLI) | payer MEDICARE ==
--- NOTE | 2024-11-04 11:21 | XR ---
EXAMINATION TYPE: XR KUB DATE OF EXAM: 11/04/2024 10:32 AM COMPARISON: 09/26/2023 CLINICAL INDICATION: Female, 74 years old with history of N20.0 Calculus kidney, TECHNIQUE: XR KUB view(s) obtained. FINDINGS: There is a normal bowel gas pattern. Psoas margins are normal. No organomegaly is present. Large calcifications over the right kidney, present previously and appears stable. An electronic device overlies the left abdomen. IMPRESSION: 1. Right renal calcifications. [facility], Workstation: [id number], 11/04/2024 11:19 AM
== END | disposition home or self-care (01) ==
LOC: RADXRMAIN 10:21
PROVIDERS: ATTEND Urology
DX: N20.0 Calculus of kidney (principal); N28.89 Other specified disorders of kidney and ureter
CPT/HCPCS: 74018